=== PATIENT | male | born 1955 | race Two or more races ===

== ENCOUNTER 2025-02-19 12:20 | Emergency (ER) | payer OTHER ==
[~2025-02-19] VITALS: Ht 175.3 cm; Wt 99.8 kg
[2025-02-19 12:35] VITALS: TEMP 99.7
[2025-02-19] MEDS ORDERED: IBUPROFEN 600 MG TABLET ONE (13:37)
[2025-02-19] MEDS ORDERED: ACETAMINOPHEN ES 500 MG TABLET ONE (13:37)
[2025-02-19] MEDS: IBUPROFEN 600 MG TABLET PO ONE (13:40)
[2025-02-19] MEDS: ACETAMINOPHEN ES 500 MG TABLET PO ONE (13:40)
[2025-02-19] MEDS ORDERED: IBUP-1490 PO (14:54)
[2025-02-19 15:05] VITALS: BP 124/77; O2SAT 98
== END 2025-02-19 15:05 | disposition home or self-care (01) ==
LOC: ER 12:26
DX: M25.561 Pain in right knee (principal); N50.819 Testicular pain, unspecified; I10 Essential (primary) hypertension; E03.9 Hypothyroidism, unspecified; E11.9 Type 2 diabetes mellitus without complications
CPT/HCPCS: 73564-TC